=== PATIENT | female | born 1975 | race African-American/Black ===

== ENCOUNTER 2016-05-09 14:44 | Emergency (ER) | payer OTHER ==
[~2016-05-09] VITALS: Ht 160 cm; Wt 65.8 kg
[2016-05-09 15:02] VITALS: BP 110/78
--- NOTE | 2016-05-09 15:09 | ED UPPER/LOWER EXTREMITY COMPL ---
History of Present Illness General Chief Complaint: Laceration Procedure Stated Complaint: FINGER LAC Source: patient Exam Limitations: no limitations Vital Signs & Intake/Output Vital Signs & Intake/Output Vital Signs Date Time Temp Pulse Resp B/P Pulse O2 O2 Flow FiO2 Ox Delivery Rate 05/09 1502 97.2 78 18 110/78 99 Room Air Allergies Coded Allergies: No Known Drug Allergies (05/09/16) Reconcile Medications No Known Home Medications Triage Note: C/O SMALL LACERATION TO LEFT 3RD FINGER, CUT ON KNIFE AT HOME. OCCURRED 4 HOURS AGO. NOT VISUALIZED. TETANUS UP TO DATE. Triage Nurses Notes Reviewed? yes Onset: Abrupt Duration: constant Timing: single episode today Severity: moderate Severity Numbers: 5 Method of Injury: laceration : No Patient currently breastfeeds: Yes HPI: Patient is a 40-year-old female who presents emergency him stating while preparing food earlier today she accidentally the LEFT FOURTH digit of her finger with a knife resulting in a laceration. No medications given prior to arrival. Tetanus is up-to-date. Patient is right arm dominant. Bleeding was not controlled prior to arrival (AGUSTINA DARLING) Past History Travel History Traveled to [place] past 21 day No Medical History Any Pertinent Medical History? none Surgical History Surgical History: non-contributory Psychosocial History What is your primary language Icelandic Tobacco Use: Never used ETOH Use: denies use Family History Hx Contributory? No (AGUSTINA DARLING) Review of Systems Review of Systems Constitutional: Reports: no symptoms. EENTM: Reports: no symptoms. Respiratory: Reports: no symptoms. Cardiovascular: Reports: no symptoms. Gastrointestinal/Abdominal: Reports: no symptoms. Genitourinary: Reports: no symptoms. Musculoskeletal: Reports: see HPI, joint pain. Skin: Reports: see HPI. Neurological/Psychological: Reports: no symptoms. Hematologic/Endocrine: Reports: see HPI, bleeding. Immunological: Reports: no symptoms. All Other Systems: Reviewed and Negative (AGUSTINA DARLING) Physical Exam Physical Exam General Appearance: no apparent distress, alert Neurologic/Tendon: normal sensation, normal motor functions, normal tendon functions, responds to pain, no evidence tendon injury, no pulse deficit Comments: Well-developed well-nourished no apparent distress. HEENT: Atraumatic, extraocular motion intact Neck: Supple, no lymphadenopathy Back: Nontender Respiratory: No respiratory distress Extremities: No edema, full range of motion Neuro: Alert and oriented x3 Psych: Mood affect normal, normal memory normal judgment. Diagram Hands Front 1) 1 cm clean linear superficial laceration noted full active range of motion full resisted range of motion noted flexion-extension no tendon deficit mild active bleeding no exposed bone (AGUSTINA DARLING) Progress Differential Diagnosis: arterial insufficiency, compartment syndrome, contusion, dislocation, DVT, fracture, gout, septic arthritis, sprain, tendon injury Plan of Care: No concerns of tendon laceration. Margins were revised after suture placement. Bacitracin bandage was applied. Patient does state that she wanted to return to work today. Patient is a [employer] employee. (AGUSTINA DARLING) Departure Departure Disposition: HOME OR SELF CARE Condition: Stable Clinical Impression Primary Impression: Laceration of finger, left Referrals: YA TAO MD (PCP/Family) Additional Instructions: As discussed begin to apply bacitracin to the area once a day with bandage to prevent infection. If you note signs of infection redness, pain, swelling, discharge return to emergency room. After 4 days please leave wound open to improve healing. Return to emergency room in 7 days for suture removal. Begin [id number] ibuprofen for pain and inflammation. Departure Forms: Customer Survey General Discharge Information Prescriptions: Current Visit Scripts No Known Home Medications (AGUSTINA DARLING) PA/HOME SERVICE TECHNICIAN Co-Sign Statement Statement: ED Attending supervision documentation- [] I saw and evaluated the patient. I have also reviewed all the pertinent lab results and diagnostic results. I agree with the findings and the plan of care as documented in the PA's/HOME SERVICE TECHNICIAN's documentation. [X] I have reviewed the ED Record and agree with the PA's/HOME SERVICE TECHNICIAN's documentation. [] Additions or exceptions (if any) to the PAs/HOME SERVICE TECHNICIAN's note and plan are summarized below: [] (MADHU SHAH,BONY) Procedures Laceration/Wound Repair Laceration/Wound Repair: Wound Location: upper extremity (LEFT FOURTH DIGIT HAND) Wound's Depth, Shape: linear, superficial Wound Length (cm): 1 Wound Explored: clean, no foreign body removed, irrigated extensively Irrigated w/ Saline (ccs): 360 Betadine Prep? Yes Anesthesia: 1% lidocaine Volume Anesthetic (ccs): 3 Wound Repaired With: sutures Suture Size/Type: 6:0 Number of Sutures: 3 Layer Closure? No Progress: Margins were revised with suture placement bacitracin and bandage was applied. Patient tolerated well (AGUSTINA DARLING)
== END 2016-05-09 16:16 ==
LOC: ERH 14:44
DX: S61.215A Laceration without foreign body of left ring finger without damage to nail, initial encounter (principal); W26.0XXA Contact with knife, initial encounter; Y93.G1 Activity, food preparation and clean up

== ENCOUNTER 2016-05-15 18:04 | Emergency (ER) | payer OTHER ==
[~2016-05-15] VITALS: Ht 162.6 cm; Wt 65.8 kg
[2016-05-15 18:11] VITALS: BP 120/79
--- NOTE | 2016-05-15 18:24 | ED ANIMAL BITE/WOUND CHECK ---
History of Present Illness General Chief Complaint: Suture Removal/Wound Recheck Stated Complaint: STITCHES REMOVAL Source: patient Exam Limitations: no limitations Vital Signs & Intake/Output Vital Signs & Intake/Output Vital Signs Date Time Temp Pulse Resp B/P Pulse O2 O2 Flow FiO2 Ox Delivery Rate 05/15 1818 97 05/15 181 97.5 86 16 120/79 99 Room Air Allergies Coded Allergies: No Known Drug Allergies (05/09/16) Reconcile Medications No Known Home Medications Triage Note: PT HERE FOR SUTURE REMOVAL FROM LEFT HAND RING FINGER. PT HAS SUTURES PLACED 1 WEEK AGO. Triage Nurses Notes Reviewed? yes : No Patient currently breastfeeds: No HPI: 40-year-old woman seen for evaluation of suture removal. Patient injured her finger last week and received stitches on the digit. She denies any recurrence injury or trauma to the area or associated fever, chills or drainage from the site. Past History Travel History Traveled to [facility] past 21 day No Medical History Any Pertinent Medical History? see below for history Surgical History Surgical History: non-contributory Psychosocial History What is your primary language Niuean Tobacco Use: Never used ETOH Use: denies use Illicit Drug Use: denies illicit drug use Family History Hx Contributory? No Review of Systems Review of Systems Constitutional: Reports: see HPI. Physical Exam Physical Exam General Appearance: well developed/nourished, no apparent distress, alert, awake , comfortable Comments: Gen.-well-developed, well-nourished middle-aged woman in no acute distress [id number] laceration with [address] without any erythema, swelling, drainage or induration Progress Differential Diagnosis: wound check Plan of Care: Patient was counseled about the suture removal procedure. Area was assessed, wound seems well-healed without any obvious infection. 3 sutures were removed without any difficulty. Patient was instructed to keep the area clean and dry and avoid reinjuring the area. Departure Departure Disposition: HOME OR SELF CARE Condition: Stable Clinical Impression Primary Impression: Visit for suture removal Referrals: YA TAO MD (PCP/Family) Additional Instructions: Continue to apply local wound care. Call 911 or return to the ED should you develop any fever or chills or obvious signs of infection in the digit. Departure Forms: Customer Survey General Discharge Information Prescriptions: Current Visit Scripts No Known Home Medications
== END 2016-05-15 18:26 ==
LOC: ERH 18:04
DX: S69.92XA Unspecified injury of left wrist, hand and finger(s), initial encounter (principal); X58.XXXA Exposure to other specified factors, initial encounter
CPT/HCPCS: 99281